=== PATIENT | female | born 1955 ===

== ENCOUNTER 2016-10-04 20:15 | Emergency (ER) | payer OTHER ==
[2016-10-04 20:15] VITALS: BMI 22.3
[2016-10-04 20:18] VITALS: TEMP 98.2; O2SAT 98
[2016-10-04] MEDS ORDERED: Bacitracin 500 Units/gm Oint Foilpak UD ONE (22:34)
--- NOTE | 2016-10-04 22:59 | C.PDOC ---
History Of Present Illness 60 y/o female presents to the ER c/o right knee pain, headache, and dizziness that occurred today. Patient was in a store where she slipped on water and fell forward hitting her right knee and head. Denies LOC, weakness, numbness, or any other complaints. Time Seen by Provider: 10/04/16 21:29 Chief Complaint (Nursing): Lower Extremity Problem/Injury History Per: Patient History/Exam Limitations: no limitations Onset/Duration Of Symptoms: Hrs Current Symptoms Are (Timing): Still Present Severity: Mild Recent travel outside of the [place]: No Additional History Per: Patient - Knee Description Of Injury: Fell Past Medical History Reviewed: Historical Data, Nursing Documentation, Vital Signs Vital Signs: Last Vital Signs Temp 98.2 F 10/04/16 20:17 Pulse 78 10/04/16 23:09 Resp 16 10/04/16 23:09 BP 129/85 10/04/16 23:09 Pulse Ox 98 10/04/16 23:33 - Medical History PMH: HTN Surgical History: Cholecystectomy Family History: States: Hypertension - Social History Hx Alcohol Use: No Hx Substance Use: No Review Of Systems Except As Marked, All Systems Reviewed And Found Negative. Musculoskeletal: Positive for: Leg Pain (Right knee pain) Neurological: Positive for: Headache, Dizziness. Negative for: Weakness, Numbness, Other (LOC) Physical Exam - Physical Exam Appears: Non-toxic, No Acute Distress Skin: Warm, Dry Head: Atraumatic, Normacephalic Extremity: Normal ROM, Tenderness (Right knee swelling and erythema, tenderness to palpation.), Capillary Refill (<2secs), Swelling Extremity: Bilateral: Normal Color And Temperature Pulses: Left Dorsalis Pedis: Normal, Right Dorsalis Pedis: Normal Neurological/Psych: Oriented x3, Normal Speech, Normal Cognition, Normal Motor, Normal Sensation, Other (No focal deficit) Gait: Steady ED Course And Treatment O2 Sat by Pulse Oximetry: 98 (RA) Pulse Ox Interpretation: Normal - Other Rad XRAY right knee X-Ray: Interpreted by Me, Viewed By Me Interpretation: Negative for fractures and dislocation - CT Scan/US CT Head w/o Other Rad Studies (CT/US): Interpreted By Me, Read By Radiologist CT/US Interpretation: EXAM: CT Head Without Intravenous Contrast. CLINICAL HISTORY: 60 years, female; Injury or trauma; Fall; Initial encounter; Concussion / head injury. TECHNIQUE: Axial computed tomography images of the head/brain without intravenous contrast. All CT scans at. this facility use one or more dose reduction techniques, viz.: automated exposure control; ma/kV. adjustment per patient size (including targeted exams where dose is matched to indication; i.e. head);. or iterative reconstruction technique. COMPARISON : No relevant prior studies available. FINDINGS: Brain: Unremarkable. No hemorrhage. No significant white matter disease. No edema. Ventricles: Unremarkable. No ventriculomegaly. Bones/joints: Unremarkable. No acute fracture. Soft tissues: Unremarkable. Sinuses: Unremarkable as visualized. No acute sinusitis. Mastoid air cells: Unremarkable as visualized. No mastoid effusion. IMPRESSION: No acute findings. Progress Note: Impression: 60 y/o female presents to the ER c/o right knee pain , headache, and dizziness that occurred today. Plans: CT Head w/o, XRAY right knee, Tylenol. Patient was placed in a knee immobilzer and crutches by the tech. On reassessment, patient is resting comfortably, with improvement of right knee pain. Patient remains afebrile, with no bony tenderness, extremity numbness or weakness. Patient is ambulatory in the emergency department with no signs of discomfort. Patient was advised to follow up with physician/clinic in 1 -2 days. Disposition - Disposition Referrals: Jez Tripp III, MD [Staff Provider] - Disposition: HOME/ ROUTINE Disposition Time: 23:00 Condition: STABLE Additional Instructions: Follow up with your PMD and Orthopedist within 1-2 days. Return to ED if feel worse. Prescriptions: Ibuprofen [Motrin Tab] 400 mg PO Q8 #30 tab Instructions: Knee Sprain (ED), Head Injury (ED) Forms: [employer] (French) Print Language: GIBRALTARIAN - Clinical Impression Clinical Impression: Head injury, Knee contusion - Scribe Statement The provider has reviewed the documentation as recorded by the Scribe Jacky escobedo All medical record entries made by the Scribe were at my direction and personally dictated by me. I have reviewed the chart and agree that the record accurately reflects my personal performance of the history, physical exam, medical decision making, and the department course for this patient. I have also personally directed, reviewed, and agree with the discharge instructions and disposition.
[2016-10-04 23:10] VITALS: BP 129/85; PULSE 78; RESP 16
--- NOTE | 2016-10-05 07:24 | CT ---
PROCEDURE: CT HEAD WITHOUT CONTRAST. HISTORY: fall COMPARISON: None available. TECHNIQUE: Axial computed tomography images were obtained through the head/brain without intravenous contrast. Radiation dose: Total exam DLP = 786 mGy-cm. This CT exam was performed using one or more of the following dose reduction techniques: Automated exposure control, adjustment of the mA and/or kV according to patient size, and/or use of iterative reconstruction technique. FINDINGS: HEMORRHAGE: No intracranial hemorrhage. BRAIN: The overall density of the dyson and white matter structures above and below the tentorium appear within normal limits as imaged. There is no mass effect hydrocephalus or intracranial hemorrhage appreciated. There is no suspicious extra-axial collection identified. Midline brain and appears within normal limits. Facet fossa contents appear unremarkable the brainstem. . VENTRICLES: Unremarkable appearing with no hydrocephalus evident. CALVARIUM: Unremarkable. PARANASAL SINUSES: Unremarkable as visualized. No significant inflammatory changes. MASTOID AIR CELLS: Unremarkable as visualized. No inflammatory changes. OTHER FINDINGS: None. IMPRESSION: Normal CT of the Head. This does not persist or worsen follow-up CT or MRI is advised, or is otherwise may be clinically indicated.
--- NOTE | 2016-10-05 10:13 | RAD ---
PROCEDURE: Right Knee Radiographs. HISTORY: COMPARISON: None available. FINDINGS: BONES: No acute displaced fracture. Suprapatellar enthesophyte. JOINTS: No dislocation. JOINT EFFUSION: No significant joint effusion. OTHER FINDINGS: None. IMPRESSION: No acute displaced fracture, dislocation, or significant joint effusion identified. If symptoms persist, or if there is continued clinical concern, x-ray follow-up in 7-10 days should be considered.
== END 2016-10-04 23:09 | disposition home or self-care (01) ==
LOC: C.ER 20:15
DX: S80.01XA Contusion of right knee, initial encounter (principal); S09.90XA Unspecified injury of head, initial encounter; W01.0XXA Fall on same level from slipping, tripping and stumbling without subsequent striking against object, initial encounter; Y93.89 Activity, other specified; Y92.512 Supermarket, store or market as the place of occurrence of the external cause

== ENCOUNTER 2016-10-09 07:16 | Day surgery (SDC) | payer OTHER ==
[2016-10-04 12:54] VITALS: BMI 22.3
[2016-10-09] MEDS ORDERED: Lidocaine 1% Inj (20ml) ONE (09:24)
[2016-10-09] MEDS ORDERED: ceFAZolin IV 1 gm in Dextrose 1 GM/50 ML BAG IVPB ONE (09:24)
[2016-10-09] MEDS ORDERED: Propofol 10 mg/ml Inj (20 ML) ONE (09:34)
[2016-10-09] MEDS ORDERED: Midazolam 2 MG/2 ML VIAL ONE (09:34)
[2016-10-09] MEDS ORDERED: Lactated Ringer's 1,000 ML IV ONE ×2 (10:46→12:49)
[2016-10-09] MEDS ORDERED: Bacitracin Ointment 30 GM TUBE ONE (11:47)
[2016-10-09] MEDS ORDERED: Silver Sulfadiazine 1% Cream (20 gm) ONE (11:47)
[2016-10-09] MEDS ORDERED: ePHEDrine 50 mg/ml Inj ONE (12:00)
[2016-10-09] MEDS ORDERED: Phenylephrine 10 mg/ml Inj ONE (12:00)
[2016-10-09] MEDS ORDERED: Oxycodone/Acetaminophen 5/325 mg Tab PO PRN (12:15)
--- NOTE | 2016-10-09 12:17 | PCM.SURG1 ---
Surgeon's Initial Post Op Note - Surgeon's Notes Surgeon: Dr. Key Lead Nitrate Processor: Dr. Samuels PGY-3, Dr. Hansen PGY-2, Latoya Garcia OMS-III Type of Anesthesia: General LMA Pre-Operative Diagnosis: Right varicose veins, right leg ulcer Operative Findings: Right varicose veins, right leg ulcer Post-Operative Diagnosis: Right varicose veins, right leg ulcer Operation Performed: 1) Right varicose vein stripping and ligation. 2) Debridement of skin on right ankle Specimen/Specimens Removed: right veins, right leg debrided tissue Estimated Blood Loss: EBL {In ML}: 50 Blood Products Given: N/A Drains Used: No Drains Post-Op Condition: Good Date of Surgery/Procedure: 10/09/16 Time of Surgery/Procedure: 12:17
[2016-10-09] MEDS: HYDROmorphone 0.5 mg/0.5 ml ISec IVP PRN ×3 (12:23→13:05)
[2016-10-09 13:53] VITALS: PULSE 57; RESP 16; TEMP 96.9; O2SAT 95
[2016-10-09 14:44] VITALS: BP 116/56
--- NOTE | 2016-10-10 07:33 | OP ---
PROCEDURE DATE: 10/09/2016 PREOPERATIVE DIAGNOSES: Ulceration, right ankle; saphenofemoral incompetence with axial reflux. OPERATION CARRIED OUT: Debridement of leg ulcer, stripping and ligation of varicosities, right leg. SURGEON: Dr. Key. ENTRY LEVEL ASSISTANT MANAGER: Dr. Samuels. ANESTHESIOLOGIST: Dr. Ulloa. The patient is a middle-aged woman with large venous ulcer at the ankle and axial reflux. OPERATIVE FINDINGS: Saphenous vein was stripped from the mid calf to the groin, and in addition, the ulcer was debrided, just the skin. PROCEDURE: The patient was given general anesthesia, intravenous antibiotics, and the ankle ulcer was debrided. Incision was made in the groin, exposing the saphenofemoral junction. This was identified and tributaries ligated. We then identified, using ultrasound, the vein in the mid calf and inserted a stripper in there and stripped out the vein. Tributaries which had been more prior to this on the field of the patient's calf were identified and then ligated and divided. Logan Key Jr., MD cc: Ruthy Anaya MD
--- NOTE | 2016-10-10 12:28 | OP ---
PROCEDURE DATE: 10/09/2016 PREOPERATIVE DIAGNOSES: Ulceration, right ankle; saphenofemoral incompetence with axial reflux. OPERATION CARRIED OUT: Debridement of leg ulcer, stripping and ligation of varicosities, right leg. SURGEON: Dr. Key. CORN LAB TECHNICIAN: Dr. Samuels. ANESTHESIOLOGIST: Dr. Ulloa. The patient is a middle-aged woman with large venous ulcer at the ankle and axial reflux. OPERATIVE FINDINGS: Saphenous vein was stripped from the mid calf to the groin, and in addition, the ulcer was debrided, just the skin. PROCEDURE: The patient was given general anesthesia, intravenous antibiotics, and the ankle ulcer was debrided. Incision was made in the groin, exposing the saphenofemoral junction. This was identified and tributaries ligated. We then identified, using ultrasound, the vein in the mid calf and inserted a stripper in there and stripped out the vein. Tributaries which had been more prior to this on the field of the patient's calf were identified and then ligated and divided. Logan Key Jr., MD cc: Ruthy Anaya MD
== END 2016-10-09 17:23 | disposition home or self-care (01) ==
LOC: C.SDS 07:16
PROVIDERS: ATTEND Surgery Vascular Surgery
DX: I83.013 Varicose veins of right lower extremity with ulcer of ankle (principal); L97.319 Non-pressure chronic ulcer of right ankle with unspecified severity; I10 Essential (primary) hypertension
CPT/HCPCS: 37722; 88304; J0690; J1100; J1170; J2001; J2250; J2370; J2405; J2704; J3010; J7120

== ENCOUNTER 2018-03-20 12:02 | Outpatient (CLI) | payer OTHER, SELFPAY | END 2018-04-03 11:02 | disposition home or self-care (01) | LOC: C.MAMMO 12:02 | DX: R92.8 Other abnormal and inconclusive findings on diagnostic imaging of breast (principal) ==